=== PATIENT | female | born 1940 | race Caucasian/White ===

== ENCOUNTER 2016-11-02 08:37 | Emergency (ER) | payer OTHER ==
[~2016-11-02] VITALS: Ht 154.9 cm; Wt 52.7 kg
[~2016-11-02 08:37] MED LIST: MULT-506 PO
[2016-11-02 08:40] VITALS: TEMP 36.4; Ht 154.9 cm; Wt 52.7 kg
[2016-11-02] MEDS ORDERED: EYED PO (09:25)
[2016-11-02] MEDS ORDERED: APPLTAB PO (09:25)
[2016-11-02] MEDS ORDERED: CALC500C70 PO (09:25)
[2016-11-02] MEDS ORDERED: GLUCTAB7 PO (09:25)
[2016-11-02] MEDS ORDERED: MAGN400T6 PO (09:25)
[2016-11-02] MEDS ORDERED: OMEG10007 PO (09:25)
[2016-11-02] MEDS ORDERED: REDCAP2 PO (09:25)
[2016-11-02] MEDS ORDERED: B-CO1CAP3 PO (09:25)
[2016-11-02] MEDS ORDERED: FLAX1CAP11 PO (09:25)
[2016-11-02] MEDS ORDERED: VNTHFA/IN INH (09:25)
[2016-11-02] MEDS ORDERED: OLIV1OIL5 PO (09:25)
[2016-11-02] MEDS ORDERED: GARLCAP PO (09:25)
[2016-11-02] MEDS ORDERED: CHOL1000 PO (09:25)
[2016-11-02] MEDS ORDERED: DIPH25CA5 PO (09:25)
[2016-11-02 09:36] LABS: BASO % 0.5 %; BASO ABS # 0.02 K/uL (0-0.2); COMPLETE YES; HEMATOCRIT 41.4 % (37-47); LYMPH % 44.6 %; MEAN CORPUSCULAR HEMOGLOBIN 30.7 pg (25-34); MEAN CORPUSCULAR HGB CONC 33.3 g/dl (32-36); MEAN PLATELET VOLUME 10.5 fL (7.4-10.4); MONO % 10.8 %; NEUT % 33.1 %; PLATELET COUNT 174 K/uL (130-400); WHITE BLOOD COUNT 4.26 K/uL (4.8-10.8)
--- NOTE | 2016-11-02 09:40 | EMERGENCY ROOM VISIT NOTE ---
History Report prepared by Minoo: Lele Fisher Under the Supervision of: Dr. Anabel Mayberry M.D. First contact with patient: 09:04 Chief Complaint: HYPERTENSION Stated Complaint: DIZZY, ELEVATED BP History of Present Illness The patient is a 76 year old female who presents to the Emergency Room with complaints of persistent dizziness since 0500 this morning. The dizziness is worse when she stands up or moves too quickly. She was also intermittently feeling lightheaded. She is still feeling dizzy at this time. The patient notes that her blood pressure was elevated this morning, although she does not have significant history of hypertension. Her pressure was up to 185/79 when she measured it at home. The patient denies syncope, speech difficulty, chest pain, palpitations, or shortness of breath. She denies urinary symptoms although she has been dizzy with past UTIs. The patient also notes a productive cough. She had two days of fever two weeks ago. She has a history of right-sided breast cancer s/p mastectomy. Source of History: patient Onset: 0500 this morning Position: other (global) Quality: other (dizziness) Timing: other (persistent) Associated Symptoms: + cough, No LOC, No SOB, No chest pain, No urinary symptoms Review of Systems See HPI for pertinent positives & negatives. A total of 10 systems reviewed and were otherwise negative. Past Medical & Surgical Surgical Problems: (1) S/P mastectomy Family History No pertinent family history Social History Smoking Status: Never Smoker Alcohol Use: none Drug Use: none Marital Status: Housing Status: lives with significant other Occupation Status: retired Current/Historical Medications Scheduled Albuterol Hfa (Ventolin Hfa), 2-4 PUFFS INH Q6H Apple Cider Vinegar (Apple Cider Vinegar), 1 DOSE PO DAILY B-Complex Vitamins (B Complex), 1 CAP PO DAILY Calcium/Vitamin D (Os-[place] 500 Plus D), 1 TAB PO DAILY Cholecalciferol (Vitamin D3), 1 TAB PO DAILY Diphenhydramine Hcl (Benadryl), 25 MG PO HS Eye Drops (Eye Drops), 1 DOSE PO QAM Fish Oil ([place]-3), 1 CAP PO DAILY Flaxseed (Linseed) (Flax Seed Oil), 1 CAP PO DAILY Garlic & Lecthin (Garlic/Lecithin), 1 CAP PO DAILY Lqvzkkmqyzc-Pjgvcesgian-Bvh C- (Glucosamine Chondroitin), 1 TAB PO DAILY Magnesium Oxide (Mag-Ox), 400 MG PO DAILY Multivitamin (Multivitamin), 1 TAB PO DAILY [place] Oil ([place] Oil), 1 DOSE PO DAILY Prednisone Tab (Prednisone), 30 MG PO DAILY Red Yeast Rice Extract (Red Yeast Rice), 1 CAP PO DAILY Scheduled PRN Meclizine HCl (Meclizine HCl), 25 MG PO Q8 PRN for vertigo Allergies Coded Allergies: BEE STING (Unverified Allergy, Severe, swelling, 11/02/16) Statins (Unverified Allergy, Severe, unknown, 11/02/16) Physical Exam Vital Signs Date Time Temp Pulse Resp B/P Pulse Ox O2 Delivery O2 Flow Rate FiO2 11/02/16 12:28 66 18 149/77 96 Room Air 11/02/16 10:38 60 18 135/72 96 11/02/16 09:51 62 11/02/16 09:33 62 165/77 75 146/70 147/72 11/02/16 08:40 36.4 60 18 169/72 99 Physical Exam Vital signs reviewed. General: Elderly well-appearing female, in no significant distress. HEENT: No scleral icterus, PERRLA, neck supple. Atraumatic. Cardiovascular: Regular rate and rhythm, no extra sounds. Pulmonary: Clear to auscultation bilaterally, normal work of breathing. Abdomen: Soft, nontender, nondistended, positive bowel sounds. Musculoskeletal: Atraumatic, no peripheral edema. Neurologic: Patient awake alert and oriented x 3, full strength in all 4 extremities. Cranial nerves 2 through 12 grossly intact. Skin: Warm, dry, no rash Medical Decision & Procedures ER Provider Diagnostic Interpretation: X-ray results as stated below per interpretation by me and the radiologist: CHEST ONE VIEW PORTABLE CLINICAL HISTORY: cough, crackles COMPARISON STUDY: 09/23/2012 FINDINGS: The cardiac and mediastinal contours are normal. There is no evidence of focal pulmonary consolidation. There is no evidence of failure. No pleural effusions are visualized.[ IMPRESSION: No active disease in the chest. Electronically signed by: Rusty Starr M.D. 11/02/2016 9:56 AM Dictated Date/Time: 11/02/2016 9:56 AM Laboratory Results 11/02/16 09:00 Red Blood Count 4.50, Mean Corpuscular Volume 92.0, Mean Corpuscular Hemoglobin 30.7, Mean Corpuscular Hemoglobin Concent 33.3, Mean Platelet Volume 10.5, Neutrophils (%) (Auto) 33.1, Lymphocytes (%) (Auto) 44.6, Monocytes (%) (Auto) 10.8, Eosinophils (%) (Auto) 11.0, Basophils (%) (Auto) 0.5, Neutrophils # (Auto ) 1.41, Lymphocytes # (Auto) 1.90, Monocytes # (Auto) 0.46, Eosinophils # (Auto ) 0.47, Basophils # (Auto) 0.02 11/02/16 09:00 Test 11/02/16 08:51 11/02/16 09:00 Urine Color YELLOW Urine Appearance CLEAR (CLEAR) Urine pH 6.5 (4.5-7.5) Urine Specific [place] 1.006 (1.000-1.030) Urine Protein NEG (NEG) Urine Glucose (UA) NEG (NEG) Urine Ketones NEG (NEG) Urine Occult Blood NEG (NEG) Urine Nitrite NEG (NEG) Urine Bilirubin NEG (NEG) Urine Urobilinogen NEG (NEG) Urine Leukocyte Esterase SMALL (NEG) Urine WBC (Auto) 1-5 /hpf (0-5) Urine RBC (Auto) 0-4 /hpf (0-4) Urine Hyaline Casts (Auto) 0 /lpf (0-5) Urine Epithelial Cells (Auto) 5-10 /lpf (0-5) Urine Bacteria (Auto) NEG (NEG) White Blood Count 4.26 K/uL (4.8-10.8) Red Blood Count 4.50 M/uL (4.2-5.4) Hemoglobin 13.8 g/dL (12.0-16.0) Hematocrit 41.4 % (37-47) Mean Corpuscular Volume 92.0 fL (80-100) Mean Corpuscular Hemoglobin 30.7 pg (25-34) Mean Corpuscular Hemoglobin Concent 33.3 g/dl (32-36) Platelet Count 174 K/uL (130-400) Mean Platelet Volume 10.5 fL (7.4-10.4) Neutrophils (%) (Auto) 33.1 % Lymphocytes (%) (Auto) 44.6 % Monocytes (%) (Auto) 10.8 % Eosinophils (%) (Auto) 11.0 % Basophils (%) (Auto) 0.5 % Neutrophils # (Auto) 1.41 K/uL (1.4-6.5) Lymphocytes # (Auto) 1.90 K/uL (1.2-3.4) Monocytes # (Auto) 0.46 K/uL (0.11-0.59) Eosinophils # (Auto) 0.47 K/uL (0-0.5) Basophils # (Auto) 0.02 K/uL (0-0.2) RDW Standard Deviation 46.2 fL (36.4-46.3) RDW Coefficient of Variation 13.7 % (11.5-14.5) Immature Granulocyte % (Auto) 0.0 % Immature Granulocyte # (Auto) 0.00 K/uL (0.00-0.02) Anion Gap 6.0 mmol/L (3-11) Est Creatinine Clear Calc Drug Dose 40.3 ml/min Estimated GFR () 71.5 Estimated GFR (Non- 61.7 BUN/Creatinine Ratio 20.9 (10-20) Calcium Level 8.9 mg/dl (8.5-10.1) Laboratory results per my review. Medications Administered Medications (Trade) Dose Ordered Sig/Natalia Route Start Time Stop Time Status Last Admin Dose Admin Sodium Chloride (Nss 1000ml) 1,000 ml @ 125 mls/hr Q8H IV 11/02/16 09:45 11/02/16 12:52 DC 11/02/16 09:45 125 MLS/HR Meclizine HCl 25 mg 25 mg NOW STAT PO 11/02/16 09:58 11/02/16 09:59 DC 11/02/16 10:10 25 MG Methylprednisolone Sodium Succinate/ Syringe (Solu-Medrol IV/ Syringe) 1.04 ml @ 1.5 mls/min NOW STAT IV 11/02/16 12:07 11/02/16 12:09 DC 11/02/16 12:23 1.5 MLS/MIN ECG Indication: other (dizziness) Rate (beats per minute): 55 Rhythm: sinus bradycardia Findings: no acute ischemic change, no ectopy ED Course 0910: The patient was evaluated by my resident. 0945: NSS 1000 ml @ 125 mls/hr. 0955: Past medical records reviewed. The patient was evaluated in room B11b. A complete history and physical examination was performed. 0958: Antivert 25 mg PO. 1150: The resident checked on her. She was feeling better until she got up to use the restroom. 1207: Methylprednisolone Sodium Succinate 65 mg / syringe 1.04 ml @ 1.5 mls/min , Ativan 0.5 mg IV. 1230: The patient was discharged by the resident. Medical Decision Differential diagnosis: Etiologies such as benign positional vertigo, dehydration, hypovolemia, anemia, tumor, infection, hypoglycemia, electrolyte abnormalities, cardiac sources, intracerebral event, toxicologic, neurologic, as well as others were entertained. This patient was evaluated and appeared to be in no significant distress. IV access was obtained and laboratory work was drawn. The patient was placed on the quality assurance monitor chassis and found to have a blood pressure that was stable. Gentle IV hydration was initiated. The patient is felt to be suffering from more of a vertigo than a true orthostasis. The patient was given 25 mg of oral meclizine. She was observed and was feeling improved. Her laboratory work is fairly unrevealing. The patient ambulated to the bathroom and developed a second episode of vertigo when attempting to sit on the toilet. She did not fall or have any specific weakness. The patient was then given 0.5 mg of IV Ativan and 65 mg of IV Solu-Medrol. She was reevaluated and appeared to be doing well. She was discharged to care of her daughter. She will continue with prednisone taper and meclizine when necessary. The patient was encouraged to follow-up with her primary care physician this week and return to the ER for worsening of symptoms or any medical concerns. Impression Primary Impression: Vertigo Scribe Attestation The scribe's documentation has been prepared under my direction and personally reviewed by me in its entirety. I confirm that the note above accurately reflects all work, treatment, procedures, and medical decision making performed by me. Departure Information Dispostion Home / Self-Care Prescriptions Prednisone Tab (PREDNISONE) 10 Mg Tab 30 MG PO DAILY for 4 Days, #12 TAB Prov: Anabel Mayberry M.D. 11/02/16 Meclizine HCl (Meclizine HCl) 25 Mg Tab 25 MG PO Q8 Y for vertigo, #20 TABS Prov: Anabel Mayberry M.D. 11/02/16 Referrals Madiha Mullins D.O. (PCP) Forms HOME CARE DOCUMENTATION FORM, IMPORTANT VISIT INFORMATION, WORK / SCHOOL INSTRUCTIONS Patient Instructions My [facility] Additional Instructions Diagnosis: Vertigo Meclizine 25 mg every 8 hours as needed for spinning/vertigo. Prednisone 30 mg daily for 4 more days. Drink plenty of clear fluids. Follow-up with your physician this week for reevaluation. Return to the ER for worsening of symptoms or any medical concerns.
[2016-11-02 09:43] LABS: BUN/CREATININE RATIO 20.9 (10-20); CALCIUM 8.9 mg/dl (8.5-10.1); CREATININE 0.91 mg/dl (0.60-1.20); POTASSIUM 3.7 mmol/L (3.5-5.1)
[2016-11-02] MEDS ORDERED: SODIUM CHLORIDE 0.9% 1000ML 1,000 ML IV SCH (09:45)
--- NOTE | 2016-11-02 09:53 | EMERGENCY ROOM VISIT NOTE ---
History First contact with patient: 09:07 Chief Complaint: HYPERTENSION Stated Complaint: DIZZY, ELEVATED BP History of Present Illness The patient is a 76 year old female who presents to the Emergency Room with complaints of Dizziness. Since around 5 AM the day of arrival, Patient noticed dizziness/lightheadedness. Symptoms have continued throughout the day but were most notable when turning her head quickly or going from a sitting to standing position. No syncope. Patient denies CP, Palpitation, SOB, orthopnea , paroxysmal Nocturnal Dyspnea. She also reports productive cough. Patient was also concerned about UTI because she felt similarly dizzy after a previous one. She reports having had a Urinalysis done in clinic 1 wk ago which was negative. Pt denies headache, change in vision, fevers, , nausea, vomiting, diarrhea, pain with urination, and melena. Patient has hx of Rt sided Breast cancer s/p Mastectomy s/p chemotherapy (1994) Review of Systems See HPI for pertinent positives & negatives. A total of 10 systems reviewed and were otherwise negative. Past Medical/Surgical History Surgical Problems: (1) S/P mastectomy Family History No pertinent family history Social History Smoking Status: Never Smoker Alcohol Use: none Drug Use: none Marital Status: Housing Status: lives with significant other Occupation Status: retired Current/Historical Medications Scheduled Albuterol Hfa (Ventolin Hfa), 2-4 PUFFS INH Q6H Apple Cider Vinegar (Apple Cider Vinegar), 1 DOSE PO DAILY B-Complex Vitamins (B Complex), 1 CAP PO DAILY Calcium/Vitamin D (Os-[place] 500 Plus D), 1 TAB PO DAILY Cholecalciferol (Vitamin D3), 1 TAB PO DAILY Diphenhydramine Hcl (Benadryl), 25 MG PO HS Eye Drops (Eye Drops), 1 DOSE PO QAM Fish Oil ([place]-3), 1 CAP PO DAILY Flaxseed (Linseed) (Flax Seed Oil), 1 CAP PO DAILY Garlic & Lecthin (Garlic/Lecithin), 1 CAP PO DAILY [place]izfwwo-Skvljcizdgr-Yx[place] C- (Glucosamine Chondroitin), 1 TAB PO DAILY Magnesium Oxide (Mag-Ox), 400 MG PO DAILY Multivitamin (Multivitamin), 1 TAB PO DAILY [place] Oil ([place] Oil), 1 DOSE PO DAILY Prednisone Tab (Prednisone), 30 MG PO DAILY Red Yeast Rice Extract (Red Yeast Rice), 1 CAP PO DAILY Scheduled PRN Meclizine HCl (Meclizine HCl), 25 MG PO Q8 PRN for vertigo Allergies Coded Allergies: BEE STING (Unverified Allergy, Severe, swelling, 11/02/16) Statins (Unverified Allergy, Severe, unknown, 11/02/16) Physical Exam Vital Signs Date Time Temp Pulse Resp B/P Pulse Ox O2 Delivery O2 Flow Rate FiO2 11/02/16 12:28 66 18 149/77 96 Room Air 11/02/16 10:38 60 18 135/72 96 11/02/16 09:51 62 11/02/16 09:33 62 165/77 75 146/70 147/72 11/02/16 08:40 36.4 60 18 169/72 99 Physical Exam GENERAL: alert, well appearing, well nourished, no distress, non-toxic EYE EXAM: normal conjunctiva, PERRL and EOM's grossly intact OROPHARYNX: no exudate, no erythema, lips, buccal mucosa, and tongue normal and mucous membranes are moist NECK: supple, no nuchal rigidity, no adenopathy, non-tender LUNGS: Bibasilar light crackles. Normal chest wall mechanics HEART: no murmurs, S1 normal and S2 normal ABDOMEN: abdomen soft, non-tender, normo-active bowel sounds, no masses, no rebound or guarding. SKIN: no rashes and no bruising UPPER EXTREMITIES: upper extremities are grossly normal. LOWER EXTREMITIES: No pitting edema. NEURO EXAM: Normal sensorium, cranial nerves II-XII grossly intact, normal speech, no gross weakness of arms, no gross weakness of legs. Medical Decision & Procedures Laboratory Results 11/02/16 09:00 Red Blood Count 4.50, Mean Corpuscular Volume 92.0, Mean Corpuscular Hemoglobin 30.7, Mean Corpuscular Hemoglobin Concent 33.3, Mean Platelet Volume 10.5, Neutrophils (%) (Auto) 33.1, Lymphocytes (%) (Auto) 44.6, Monocytes (%) (Auto) 10.8, Eosinophils (%) (Auto) 11.0, Basophils (%) (Auto) 0.5, Neutrophils # (Auto ) 1.41, Lymphocytes # (Auto) 1.90, Monocytes # (Auto) 0.46, Eosinophils # (Auto ) 0.47, Basophils # (Auto) 0.02 11/02/16 09:00 Test 11/02/16 08:51 11/02/16 09:00 Urine Color YELLOW Urine Appearance CLEAR (CLEAR) Urine pH 6.5 (4.5-7.5) Urine Specific [place] 1.006 (1.000-1.030) Urine Protein NEG (NEG) Urine Glucose (UA) NEG (NEG) Urine Ketones NEG (NEG) Urine Occult Blood NEG (NEG) Urine Nitrite NEG (NEG) Urine Bilirubin NEG (NEG) Urine Urobilinogen NEG (NEG) Urine Leukocyte Esterase SMALL (NEG) Urine WBC (Auto) 1-5 /hpf (0-5) Urine RBC (Auto) 0-4 /hpf (0-4) Urine Hyaline Casts (Auto) 0 /lpf (0-5) Urine Epithelial Cells (Auto) 5-10 /lpf (0-5) Urine Bacteria (Auto) NEG (NEG) White Blood Count 4.26 K/uL (4.8-10.8) Red Blood Count 4.50 M/uL (4.2-5.4) Hemoglobin 13.8 g/dL (12.0-16.0) Hematocrit 41.4 % (37-47) Mean Corpuscular Volume 92.0 fL (80-100) Mean Corpuscular Hemoglobin 30.7 pg (25-34) Mean Corpuscular Hemoglobin Concent 33.3 g/dl (32-36) Platelet Count 174 K/uL (130-400) Mean Platelet Volume 10.5 fL (7.4-10.4) Neutrophils (%) (Auto) 33.1 % Lymphocytes (%) (Auto) 44.6 % Monocytes (%) (Auto) 10.8 % Eosinophils (%) (Auto) 11.0 % Basophils (%) (Auto) 0.5 % Neutrophils # (Auto) 1.41 K/uL (1.4-6.5) Lymphocytes # (Auto) 1.90 K/uL (1.2-3.4) Monocytes # (Auto) 0.46 K/uL (0.11-0.59) Eosinophils # (Auto) 0.47 K/uL (0-0.5) Basophils # (Auto) 0.02 K/uL (0-0.2) RDW Standard Deviation 46.2 fL (36.4-46.3) RDW Coefficient of Variation 13.7 % (11.5-14.5) Immature Granulocyte % (Auto) 0.0 % Immature Granulocyte # (Auto) 0.00 K/uL (0.00-0.02) Anion Gap 6.0 mmol/L (3-11) Est Creatinine Clear Calc Drug Dose 40.3 ml/min Estimated GFR () 71.5 Estimated GFR (Non- 61.7 BUN/Creatinine Ratio 20.9 (10-20) Calcium Level 8.9 mg/dl (8.5-10.1) Medications Administered Medications (Trade) Dose Ordered Sig/Natalia Route Start Time Stop Time Status Last Admin Dose Admin Sodium Chloride (Nss 1000ml) 1,000 ml @ 125 mls/hr Q8H IV 11/02/16 09:45 11/02/16 12:52 DC 11/02/16 09:45 125 MLS/HR Meclizine HCl 25 mg 25 mg NOW STAT PO 11/02/16 09:58 11/02/16 09:59 DC 11/02/16 10:10 25 MG Methylprednisolone Sodium Succinate/ Syringe (Solu-Medrol IV/ Syringe) 1.04 ml @ 1.5 mls/min NOW STAT IV 11/02/16 12:07 11/02/16 12:09 DC 11/02/16 12:23 1.5 MLS/MIN Medical Decision Differential diagnosis includes etiologies such as benign positional vertigo, dehydration, hypovolemia, anemia, tumor, infection, hypoglycemia, electrolyte abnormalities, cardiac sources, intracerebral event, toxicologic, neurologic, as well as others were entertained. 76 yo F p/w Hx of Dizziness as of morning of arrival w/o syncope. possible vertigo symptoms. Orthostatic BP's equivocal. EKG showing Sinus Bradycardia CBC unremarkable BMP unremarkable UA unremarkable CXR: No active disease in the chest. -Given 1L Fluids 1245 mls/hr -Given Meclizine 25 mg -Given IV Solu-medrol 65 mg -Upon reevaluation, the patient is feeling better. I discussed the findings and the treatment plan with the patient involving 30 mg Prednisone Taper x 3 days. Patient verbalizes agreement and understanding. She was discharged home with followup to PCP Departure Information Prescriptions Prednisone Tab (PREDNISONE) 10 Mg Tab 30 MG PO DAILY for 4 Days, #12 TAB Prov: Jefe, Anabel B.,M.D. 11/02/16 Meclizine HCl (Meclizine HCl) 25 Mg Tab 25 MG PO Q8 Y for vertigo, #20 TABS Prov: Anabel Mayberry M.D. 11/02/16 Referrals Madiha Mullins DDavidsonODavidson (PCP) Patient Instructions My [facility] Resident Tracking Resident Involvement: Resident Care Provided Care Provided: Adult ED
[2016-11-02 09:58] LABS: URINE APPEARANCE CLEAR (CLEAR); URINE BILIRUBIN NEG (NEG); URINE COLOR YELLOW; URINE NITRITE NEG (NEG); URINE PH 6.5 (4.5-7.5); URINE SPECIFIC GRAVITY 1.006 (1.000-1.030); UROBILINOGEN NEG (NEG); ZZUR CULT IF INDIC CLEAN CATCH NO
[2016-11-02] MEDS ORDERED: MECLIZINE HCL 25 MG TAB PO STA (09:58)
--- NOTE | 2016-11-02 09:58 | DIAGNOSTIC IMAGING REPORT ---
CHEST ONE VIEW PORTABLE CLINICAL HISTORY: cough, crackles COMPARISON STUDY: 09/23/2012 FINDINGS: The cardiac and mediastinal contours are normal. There is no evidence of focal pulmonary consolidation. There is no evidence of failure. No pleural effusions are visualized.[ IMPRESSION: No active disease in the chest. Electronically signed by: Rusty Starr M.D. 11/02/2016 9:56 AM Dictated Date/Time: 11/02/2016 9:56 AM
[2016-11-02 10:00] LABS: MANUAL MICROSCOPIC REQUIRED? NO; REVIEW REQ? NO
[2016-11-02] MEDS ORDERED: METHYLPREDNISOLONE IV STA (12:07)
[2016-11-02] MEDS ORDERED: LORAZEPAM 2 MG/ML 1 ML VIAL IV STA (12:07)
[2016-11-02 12:28] VITALS: BP 149/77; PULSE 66; O2SAT 96
[2016-11-02] MEDS ORDERED: PRED10TA PO (12:37)
[2016-11-02] MEDS ORDERED: ANT25 PO (12:37)
== END 2016-11-02 12:46 | disposition home or self-care (01) ==
LOC: C.EDB 08:38
DX: R42 Dizziness and giddiness (principal); R00.1 Bradycardia, unspecified; Z90.10 Acquired absence of unspecified breast and nipple; Z79.899 Other long term (current) drug therapy; Z91.030 Bee allergy status; Z91.09 Other allergy status, other than to drugs and biological substances